=== PATIENT | male | born 1990 | race Asian ===

== ENCOUNTER 2017-01-17 08:39 | Emergency (ER) | payer OTHER ==
[~2017-01-17] VITALS: Ht 175.3 cm; Wt 88.5 kg
--- NOTE | 2017-01-17 11:24 | Emergency Room Report ---
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 Customer is "sick." Was wearing double-gloves, no skin contact of vomit or blood. Just wants to " be sure." Feels well otherwise. Allergies: Coded Allergies: No Known Allergies (Unverified , 01/17/17) Patient History Past Medical History: none Past Surgical History: none Pertinent Family History: none Social History: Denies: alcohol use, drug use, smoking Immunizations: UTD Reviewed Nursing Documentation: PMH: Agreed, PSxH: Agreed Nursing Documentation-PMH Past Medical History: No Stated History Review of Systems All Other Systems: negative except mentioned in HPI Physical Exam Vital Signs Date Time Temp Pulse Resp B/P Pulse Ox O2 Delivery O2 Flow Rate FiO2 01/17/17 08:44 97.9 80 15 110/76 97 Room Air Sp02 EP Interpretation: reviewed, normal General Appearance: normal inspection, well appearing, no apparent distress, alert Head: atraumatic ENT: normal ENT inspection, hearing grossly normal, normal voice Neck: normal inspection, full range of motion, supple, no bony tend Respiratory: normal inspection, lungs clear, normal breath sounds, no respiratory distress, no retraction, no wheezing Cardiovascular #1: regular rate, rhythm, no edema Gastrointestinal: normal inspection, normal bowel sounds, non tender, soft, no guarding, no hernia Genitourinary: no CVA tenderness Musculoskeletal: normal inspection, back normal, normal range of motion, Malka' s Sign negative Neurologic: normal inspection, alert, oriented x3, responsive, 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 Afebrile Well appearing No actual skin or mucous membrane exposure to customer fluids Provided calm reassurance to patient PMD followup as needed DC home Last Vital Signs Date Time Temp Pulse Resp B/P Pulse Ox O2 Delivery O2 Flow Rate FiO2 01/17/17 10:01 89 16 124/76 98 Room Air 01/17/17 08:44 97.9 Status: improved Disposition: HOME, SELF-CARE Condition: Improved Referrals: NOT CHOSEN IPA/MD,REFERRING (PCP) Patient Instructions: Body Fluid Exposure Information TO SALDIVAR M.D. Jan 17, 2017 11:24
[2017-01-17 18:59] VITALS: BP 124/76
== END 2017-01-17 10:01 | disposition home or self-care (01) ==
LOC: EMR 09:09
DX: Z77.21 Contact with and (suspected) exposure to potentially hazardous body fluids (principal)
CPT/HCPCS: 99284